=== PATIENT | female | born 1975 | race Hispanic/Latino ===

== ENCOUNTER 2024-06-14 09:39 | Emergency (ER) | payer OTHER, SELFPAY ==
[2024-06-14 09:45] VITALS: BP 109/77; PULSE 79; RESP 14; TEMP 36.6; O2SAT 97; BMI 45.5
[2024-06-14 10:07] LABS: Bacteria Urine Many (>30); Culture Indicated Urine Specimen Cultured; Ictotest Urine Negative (Negative); RBC Urine 1-5/HPF (0-5/HPF); Squamous Epithelial Cell Urine 5-10 /HPF (0-5/HPF); Urine Volume 10mL (spun); WBC Urine 30-100/HPF (0-5/HPF)
--- NOTE | 2024-06-14 10:27 | ED_ITS ---
HPI - Back Pain/Injury <Randolph Adam MD - Last Filed: 06/17/24 07:42> General Chief Complaint: Back Pain/Injury Stated Complaint: back pain kidney pain ear pain Time Seen by Provider: 06/14/24 10:20 Source: patient History of Present Illness HPI Narrative: Patient here visiting from [place]. Patient here since February 2024. She will return December 2024. Patient complains 4 months of right ear drainage without hearing loss. No prior history of ear surgery. 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 Patient complains 1 week of bilateral flank pain without dysuria or frequency. History of UTI last year but does not feel the same. No fever chills no cough cold or congestion. No known back injury. Patient in no distress. Patient does have history of diabetes. No prior history of kidney stones. Patient resting comfortably. Can hear rubbing fingers and whispering in the right ear. There is slight greenish discharge in the canal. Related Data Previous Rx's Medication Instructions Recorded cefdinir 300 mg capsule 300 mg PO BID #10 caps 06/14/24 ciprofloxacin HCl 0.2 % ear drops 5 drp EAR-RIGHT BID 7 days #14 ea 06/14/24 in a dropperette Allergies Allergy/AdvReac Type Severity Reaction Status Date / Time codeine Allergy Verified 06/14/24 09:45 iodine Allergy Verified 06/14/24 09:45 Review of Systems <Randolph Adam MD - Last Filed: 06/17/24 07:42> Review of Systems Narrative: GENERAL: Negative chills, fatigue, malaise, fever, sweats. HEENT: Negative sinus pain, ear pain, sore throat, positive right ear discharge RESPIRATORY: Negative dyspnea, cough CARDIOVASCULAR: Negative chest pain, palpitations GASTROINTESTINAL: Negative nausea, vomiting, abdominal pain, positive flank pain : Negative dysuria, frequency, hematuria MUSCULOSKELETAL: Negative muscle or bony pain SKIN: Negative rash, skin lesions NEUROLOGIC: Negative weakness, numbness ROS Unobtainable: All systems reviewed & are unremarkable except as noted in HPI and below Patient History <Randolph Adam MD - Last Filed: 06/17/24 07:42> Social History Smoking Status: Unknown if ever smoked Smoking Status: Unknown if ever smoked Exam <Randolph Adam MD - Last Filed: 06/17/24 07:42> Narrative Exam Narrative: GENERAL: in no distress, not toxic not dyspneic HEAD: Normocephalic. EYES: Pupils equal round ENT: Mucous membranes moist. Examination of the right ear. There is mild erythema of the canal with old green discharge. Tympanic membrane intact. No effusion or bulging or erythema. No vesicles or lesions. Tragus is mildly tender. NECK: Trachea midline. CARDIOVASCULAR: Regular rate and rhythm RESPIRATORY: Clear to auscultation. Breath sounds equal bilaterally. No wheezes, rales, or rhonchi. GASTROINTESTINAL: Abdomen soft, non-tender, abdomen is soft nontender no peritoneal signs no pain out of portion exam no guarding no rebound. Bowel sounds are present. EXTREMITIES: No gross deformities. BACK: No flank tenderness. No CVA tenderness NEURO: AOx4. Clear speech SKIN: Warm and dry PSYCH: Not anxious, is cooperative Initial Vital Signs Initial Vital Signs: Vital Signs Temperature 97.9 F 06/14/24 09:45 Pulse Rate 79 06/14/24 09:45 Respiratory Rate 14 06/14/24 09:45 Blood Pressure 109/77 06/14/24 09:45 Pulse Oximetry 97 06/14/24 09:45 Oxygen Delivery Method Room Air 06/14/24 09:45 <Amber Betts DO - Last Filed: 06/16/24 11:24> Initial Vital Signs Initial Vital Signs: Vital Signs Temperature 97.9 F 06/14/24 09:45 Pulse Rate 79 06/14/24 09:45 Respiratory Rate 14 06/14/24 09:45 Blood Pressure 109/77 06/14/24 09:45 Pulse Oximetry 97 06/14/24 09:45 Oxygen Delivery Method Room Air 06/14/24 09:45 Course <Randolph Adam MD - Last Filed: 06/17/24 07:42> Orders Ordered: Discontinued Medications Cefdinir (Cefdinir 300 Mg Capsule) 300 mg PO NOW ONE Stop: 06/14/24 12:01 Last Admin: 06/14/24 12:10 Dose: 300 mg Documented By: RB Ondansetron HCl (Ondansetron 4 Mg/2 Ml Inj) 4 mg IV NOW PRN PRN Reason: Nausea And Vomiting Ondansetron HCl (Ondansetron 4 Mg Odt) 4 mg SL NOW PRN PRN Reason: Nausea And Vomiting Vital Signs Vital signs: Vital Signs - 8 hr 06/14/24 09:45 Temperature 97.9 F Pulse Rate 79 Respiratory Rate 14 Blood Pressure 109/77 Pulse Oximetry 97 Oxygen Delivery Method Room Air <Amber Betts DO - Last Filed: 06/16/24 11:24> Orders Ordered: Discontinued Medications Cefdinir (Cefdinir 300 Mg Capsule) 300 mg PO NOW ONE Stop: 06/14/24 12:01 Last Admin: 06/14/24 12:10 Dose: 300 mg Documented By: RB Ondansetron HCl (Ondansetron 4 Mg/2 Ml Inj) 4 mg IV NOW PRN PRN Reason: Nausea And Vomiting Ondansetron HCl (Ondansetron 4 Mg Odt) 4 mg SL NOW PRN PRN Reason: Nausea And Vomiting Vital Signs Vital signs: Vital Signs - 8 hr 06/14/24 09:45 Temperature 97.9 F Pulse Rate 79 Respiratory Rate 14 Blood Pressure 109/77 Pulse Oximetry 97 Oxygen Delivery Method Room Air MDM - Back Pain/Injury <Randolph Adam MD - Last Filed: 06/17/24 07:42> Lab Data 06/14/24 10:30 06/14/24 10:30 Labs: Lab Results 06/14/24 06/14/24 Range/Units 09:47 10:30 WBC 5.5 (4.5-11.0) X10^3/uL RBC 4.46 (4.0-5.2) X10^6/uL Hgb 13.8 (12.0-16.0) g/dL Hct 42.0 (36-46) % MCV 94.2 (80-100) fL MCH 30.9 (26-34) PG MCHC 32.8 (30-36) % RDW 13.9 (11.6-14.8) % Plt Count 293 (150-400) X10^3/uL Neut % (Auto) 44.4 L (50-75) % Lymph % (Auto) 41.7 H (25-40) % [place] % (Auto) 8.6 (3-14) % Eos % (Auto) 4.5 H (2-4) % Baso % (Auto) 0.8 (0-2) % Neut # (Auto) 2400 (2496-0990) /uL Lymph # (Auto) 2300 (2034-0965) /uL [place] # (Auto) 500 (0-900) /uL Eos # (Auto) 200 (0-450) /uL Baso # (Auto) 0 (0-100) /uL Sodium 137 (137-145) mmol/L Potassium 4.1 (3.4-5.1) mmol/L Chloride 106 (98-107) mmol/L Carbon Dioxide 22 (22-32) mmol/L BUN 14 (7-17) mg/dL Creatinine 1.17 H (0.52-1.04) mg/dL Estimated GFR 57 L (>60) mL/min BUN/Creatinine Ratio 12.0 (6-22) Glucose 94 (70-100) mg/dL Calcium 8.9 (8.4-10.2) mg/dL Total Bilirubin 0.4 (0.2-1.3) mg/dL AST 27 (14-36) IU/L ALT 20 (<35) IU/L Alkaline Phosphatase 79 (38-126) U/L Total Protein 6.9 (6.3-8.2) g/dL Albumin 3.9 (3.5-5.0) g/dL Globulin 3.0 (1.7-4.1) g/dL Albumin/Globulin Ratio 1.3 (1.0-2.8) Ur Bilirubin Confirm Negative (Negative) Urine RBC 1-5/hpf (0-5/HPF) Urine WBC 30-100/hpf H (0-5/HPF) Ur Squamous Epith Cells 5-10 /hpf H (0-5/HPF) Urine Bacteria Many (>30) H (None) Ur Culture Indicated? Specimen cultured Vol Urine Centrifuged 10ml (spun) Point of Care Testing Test Results Negative Urine Dip Bedside Urine Glucose Negative Bedside Urine Bilirubin + 1 Bedside Urine Ketone - Negative Urine Specific [place] 1.015 Bedside Urine Occult Blood +/- Bedside Urine pH 6.0 Bedside Urine Protein +/- 15 Bedside Urine Urobilinogen - Negative Bedside Urine Nitrite - Negative Bedside Urine Leukocytes +++ [address] scan - abdomen/pelvis: Radiologist's Impression: [address] [address] [address] Scan Report Signed Patient: Sherita Shaw MR#: [id number] : 1975 Acct:[id number] Age/Sex: 48 / F Date of Service: 06/14/24 Loc: ED Accession Number: [id number] Procedure: CT kidney ureter bladder (KUB) Ordering Provider: Randolph Adam MD PROCEDURE: CT KIDNEY URETER BLADDER (KUB) INDICATIONS: Flank pain TECHNIQUE: Axial sections were acquired from the lung bases to the pubic symphysis. Coronal and sagittal reformats were performed. For radiation dose reduction, the following was used: automated exposure control, adjustment of mA and/or kV according to patient size. COMPARISON: None. FINDINGS: Image quality: Diagnostic. Lower Chest: No significant findings. URINARY: Right Kidney: There are 2 punctate nonobstructing calcifications. Right Ureter: No hydroureter. Left Kidney: 4-5 punctate nonobstructing calcifications. Left Ureter: No hydroureter. Bladder: Normal wall thickness. No stones. ABDOMEN: Liver: No contour-deforming solid mass. Gallbladder: Removed. Biliary ducts: No biliary dilation. Pancreas: No ductal dilation. Spleen: Size is within normal limits. Adrenal Glands: No adrenal nodules. Stomach and Bowel: Normal colonic caliber, without significant wall thickening. Minimal diverticula without inflammatory change. Peritoneum: No abnormal intraperitoneal fluid. No free air. Ventral Wall: No hernia. Abdominal Nodes: No enlarged retroperitoneal or mesenteric lymph nodes. Vessels: Aorta and inferior vena cava are normal in size. PELVIS: Pelvic Organs: Unremarkable. Pelvic Nodes: Unremarkable. Miscellaneous: No inguinal hernias are seen. Spinal stimulators present with leads extending to T8-9. Bones: Unremarkable. IMPRESSION: No obstructing stones or hydronephrosis. Diverticulosis. Dictated by: Karyna Hampton M.D. on 06/14/2024 at 11:14 Approved by: Karyna Hampton M.D. on 06/14/2024 at 11:18 MDM Narrative Medical decision making narrative: Patient here visiting from [place]. Patient here since February 2024. She will return December 2024. Patient complains 4 months of right ear drainage without hearing loss. No prior history of ear surgery. 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 Patient complains 1 week of bilateral flank pain without dysuria or frequency. History of UTI last year but does not feel the same. No fever chills no cough cold or congestion. No known back injury. Patient in no distress. Patient does have history of diabetes. No prior history of kidney stones. Patient resting comfortably. Can hear rubbing fingers and whispering in the right ear. There is slight greenish discharge in the canal. After history and exam, CBC CMP urinalysis CT abdomen pelvis [facility] Medical records reviewed: No recent visit for this complaint Differential considered: Includes but not limited to otitis externa pyelonephritis UTI kidney stone Lab Test results independently reviewed as above. Pertinent findings: Urinalysis WBC 100. Positive bacteria. WBC 5.5 hemoglobin 13.8 sodium 137 potassium 4.1 BUN 14 creatinine 1.17 GFR 57 Imaging studies independently reviewed: CT abdomen pelvis no acute finding Treatments: Omnicef Re-evaluations: 12:07 p.m.. Updated patient results. Patient in no distress. Agrees for treatment for swimmer's ear and UTI. Medications have been started. Prescriptions provided. Referrals provided for ENT as well as primary care. She desires discharge home. Discussion: Appropriate for discharge home exam is reassuring as well as laboratory studies and imaging studies. Return precautions reviewed with patient. Antibiotics have been started. She desires discharge home. Diagnosis: Otitis externa, UTI <Amber Betts, DO - Last Filed: 06/16/24 11:24> Lab Data Labs: Lab Results 06/14/24 06/14/24 Range/Units 09:47 10:30 WBC 5.5 (4.5-11.0) X10^3/uL RBC 4.46 (4.0-5.2) X10^6/uL Hgb 13.8 (12.0-16.0) g/dL Hct 42.0 (36-46) % MCV 94.2 (80-100) fL MCH 30.9 (26-34) PG MCHC 32.8 (30-36) % RDW 13.9 (11.6-14.8) % Plt Count 293 (150-400) X10^3/uL Neut % (Auto) 44.4 L (50-75) % Lymph % (Auto) 41.7 H (25-40) % [facility] % (Auto) 8.6 (3-14) % Eos % (Auto) 4.5 H (2-4) % Baso % (Auto) 0.8 (0-2) % Neut # (Auto) 2400 (7863-8301) /uL Lymph # (Auto) 2300 (5817-6874) /uL [facility] # (Auto) 500 (0-900) /uL Eos # (Auto) 200 (0-450) /uL Baso # (Auto) 0 (0-100) /uL Sodium 137 (137-145) mmol/L Potassium 4.1 (3.4-5.1) mmol/L Chloride 106 (98-107) mmol/L Carbon Dioxide 22 (22-32) mmol/L BUN 14 (7-17) mg/dL Creatinine 1.17 H (0.52-1.04) mg/dL Estimated GFR 57 L (>60) mL/min BUN/Creatinine Ratio 12.0 (6-22) Glucose 94 (70-100) mg/dL Calcium 8.9 (8.4-10.2) mg/dL Total Bilirubin 0.4 (0.2-1.3) mg/dL AST 27 (14-36) IU/L ALT 20 (<35) IU/L Alkaline Phosphatase 79 (38-126) U/L Total Protein 6.9 (6.3-8.2) g/dL Albumin 3.9 (3.5-5.0) g/dL Globulin 3.0 (1.7-4.1) g/dL Albumin/Globulin Ratio 1.3 (1.0-2.8) Ur Bilirubin Confirm Negative (Negative) Urine RBC 1-5/hpf (0-5/HPF) Urine WBC 30-100/hpf H (0-5/HPF) Ur Squamous Epith Cells 5-10 /hpf H (0-5/HPF) Urine Bacteria Many (>30) H (None) Ur Culture Indicated? Specimen cultured Vol Urine Centrifuged 10ml (spun) Point of Care Testing Test Results Negative Urine Dip Bedside Urine Glucose Negative Bedside Urine Bilirubin + 1 Bedside Urine Ketone - Negative Urine Specific [place] 1.015 Bedside Urine Occult Blood +/- Bedside Urine pH 6.0 Bedside Urine Protein +/- 15 Bedside Urine Urobilinogen - Negative Bedside Urine Nitrite - Negative Bedside Urine Leukocytes +++ 500 Esterase MDM Narrative Medical decision making narrative: Patient here visiting from [place]. Patient here since February 2024. She will return December 2024. Patient complains 4 months of right ear drainage without hearing loss. No prior history of ear surgery. 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 Patient complains 1 week of bilateral flank pain without dysuria or frequency. History of UTI last year but does not feel the same. No fever chills no cough cold or congestion. No known back injury. Patient in no distress. Patient does have history of diabetes. No prior history of kidney stones. Patient resting comfortably. Can hear rubbing fingers and whispering in the right ear. There is slight greenish discharge in the canal. After history and exam, CBC CMP urinalysis CT abdomen pelvis [facility] Medical records reviewed: No recent visit for this complaint Differential considered: Includes but not limited to otitis externa pyelonephritis UTI kidney stone Lab Test results independently reviewed as above. Pertinent findings: Urinalysis WBC 100. Positive bacteria. WBC 5.5 hemoglobin 13.8 sodium 137 potassium 4.1 BUN 14 creatinine 1.17 GFR 57 Imaging studies independently reviewed: CT abdomen pelvis no acute finding Treatments: Omnicef Re-evaluations: 12:07 p.m.. Updated patient results. Patient in no distress. Agrees for treatment for swimmer's ear and UTI. Medications have been started. Prescriptions provided. Referrals provided for ENT as well as primary care. She desires discharge home. Discussion: Appropriate for discharge home exam is reassuring as well as laboratory studies and imaging studies. Return precautions reviewed with patient. Antibiotics have been started. She desires discharge home. Diagnosis: Otitis externa, UTI Dr. Betts, patient's urine culture shows E coli greater than 100,000 pansensitive patient discharged home on cefdinir no additional changes at this time.06/16/24 Discharge Plan Departure Patient Disposition: Home Clinical Impression: Acute UTI Otitis externa Qualifiers: Otitis externa type: unspecified type Chronicity: chronic Laterality: right Q ualified Code(s): H60.61 - Unspecified chronic otitis externa, right ear Instructions: DI for Urinary Tract Infection (UTI), DI for Otitis Externa Activity Restrictions/Additional Instructions: You are being treated for urinary tract infection. Antibiotics have been started sent to your pharmacy to continue. Prescription for ear drops also provided for you to treat infection. Please avoid getting water or fluid into your right ear. Please call [facility] today for follow up within a week. Also see family doctor or call provided clinic for follow up regarding urinary tract infection improvement. Please call provided primary care provider phone number to obtain family doctor, . Return if worse if any questions or concerns Prescriptions: New cefdinir 300 mg capsule 300 mg PO BID Qty: 10 0RF ciprofloxacin HCl 0.2 % dropperette 5 drp EAR-RIGHT BID 7 Days Qty: 14 0RF Stand Alone Forms: Patient Portal/API/Survey
--- NOTE | 2024-06-14 10:31 | DI.CT.S_ITS ---
PROCEDURE: CT KIDNEY URETER BLADDER (KUB) INDICATIONS: Flank pain TECHNIQUE: Axial sections were acquired from the lung bases to the pubic symphysis. Coronal and sagittal reformats were performed. For radiation dose reduction, the following was used: automated exposure control, adjustment of mA and/or kV according to patient size. COMPARISON: None. FINDINGS: Image quality: Diagnostic. Lower Chest: No significant findings. URINARY: Right Kidney: There are 2 punctate nonobstructing calcifications. Right Ureter: No hydroureter. Left Kidney: 4-5 punctate nonobstructing calcifications. Left Ureter: No hydroureter. Bladder: Normal wall thickness. No stones. ABDOMEN: Liver: No contour-deforming solid mass. Gallbladder: Removed. Biliary ducts: No biliary dilation. Pancreas: No ductal dilation. Spleen: Size is within normal limits. Adrenal Glands: No adrenal nodules. Stomach and Bowel: Normal colonic caliber, without significant wall thickening. Minimal diverticula without inflammatory change. Peritoneum: No abnormal intraperitoneal fluid. No free air. Ventral Wall: No hernia. Abdominal Nodes: No enlarged retroperitoneal or mesenteric lymph nodes. Vessels: Aorta and inferior vena cava are normal in size. PELVIS: Pelvic Organs: Unremarkable. Pelvic Nodes: Unremarkable. Miscellaneous: No inguinal hernias are seen. Spinal stimulators present with leads extending to T8-9. Bones: Unremarkable. IMPRESSION: No obstructing stones or hydronephrosis. Diverticulosis. Dictated by: Karyna Hampton M.D. on 06/14/2024 at 11:14 Approved by: Karyna Hampton M.D. on 06/14/2024 at 11:18
[2024-06-14 10:40] LABS: Add Manual Diff / Slide Review NO; Basophils Absolute Auto 0 /uL (0-100); Basophils Percent Auto 0.8 % (0-2); Eosinophils Absolute Auto 200 /uL (0-450); Eosinophils Percent Auto 4.5 % (2-4); Hemoglobin 13.8 g/dL (12.0-16.0); Lymphocytes Absolute Auto 2300 /uL (1100-4500); Lymphocytes Percent Auto 41.7 % (25-40); Mean Corpuscular HGB Conc 32.8 % (30-36); Mean Corpuscular Hemoglobin 30.9 PG (26-34); Mean Corpuscular Volume 94.2 fL (80-100); Monocytes Absolute Auto 500 /uL (0-900); Monocytes Percent Auto 8.6 % (3-14); Neutrophils Absolute Auto 2400 /uL (1500-7000); Neutrophils Percent Auto 44.4 % (50-75); Platelet Count 293 X10^3/uL (150-400); Red Blood Cell Count 4.46 X10^6/uL (4.0-5.2); Red Cell Distribution Width 13.9 % (11.6-14.8); White Blood Cell Count 5.5 X10^3/uL (4.5-11.0)
[2024-06-14 10:52] LABS: Albumin 3.9 g/dL (3.5-5.0); Albumin Globulin Ratio 1.3 (1.0-2.8); Blood Urea Nitrogen 14 mg/dL (7-17); Carbon Dioxide 22 mmol/L (22-32); Estimated Glomerular Filt Rate 57 mL/min (>60); HEMOLYSIS < 15 (0-50); Sodium 137 mmol/L (137-145); Total Protein 6.9 g/dL (6.3-8.2)
[2024-06-14 10:54] LABS: Alanine Aminotransferase 20 IU/L (<35); Alkaline Phosphatase 79 U/L (38-126); Aspartate Aminotransferase 27 IU/L (14-36); Bilirubin Total 0.4 mg/dL (0.2-1.3); Calcium 8.9 mg/dL (8.4-10.2); Chloride 106 mmol/L (98-107); Glucose 94 mg/dL (70-100); Potassium 4.1 mmol/L (3.4-5.1)
[2024-06-14 12:00] VITALS: PULSE 74; RESP 14; TEMP 36.5; O2SAT 97
[2024-06-14] MEDS: CEFDINIR 300 MG CAPSULE PO (12:10)
[2024-06-14 12:16] VITALS: BP 91/62
== END 2024-06-14 12:15 | disposition home or self-care (01) ==
PROVIDERS: Emergency Provider Emergency Medicine
DX: H60.61 Unspecified chronic otitis externa, right ear (principal); N39.0 Urinary tract infection, site not specified; R10.9 Unspecified abdominal pain
CPT/HCPCS: 36415; 74176; 80053; 81003; 81015; 81025; 85025; 87077; 87086; 87186; 99284

== ENCOUNTER 2024-07-20 19:28 | Emergency (ER) | payer OTHER, SELFPAY ==
[2024-07-20 19:42] VITALS: BP 121/82; PULSE 71; RESP 18; O2SAT 97; BMI 45.7
[2024-07-20 20:01] LABS: Appearance Urine UA CLEAR; Bilirubin Urine UA NEGATIVE (NEGATIVE); Color Urine UA YELLOW; Glucose Urine UA NEGATIVE (Negative); Ketones Urine UA NEGATIVE (NEGATIVE); Leukocyte Esterase Urine UA NEGATIVE (NEGATIVE); Nitrite Urine UA POSITIVE (Negative); Occult Blood Urine UA NEGATIVE (Negative); Protein Urine UA NEGATIVE (Negative); Specific Gravity Urine UA >=1.030 (1.000-1.035); Urobilinogen Urine UA 0.2 E.U./dL (0.2)
[2024-07-20 20:03] LABS: pH Urine UA 5.5 (4.5-8.0)
[2024-07-20 20:09] LABS: Bacteria Urine Many (>30); Culture Indicated Urine Specimen Cultured; RBC Urine None Seen (0-5/HPF); Squamous Epithelial Cell Urine 1-5 /HPF (0-5/HPF); Urine Volume 10mL (spun); WBC Urine 5-10/HPF (0-5/HPF)
[2024-07-20 21:58] VITALS: PULSE 72; O2SAT 99
[2024-07-20 21:59] VITALS: BP 110/73; PULSE 72; O2SAT 98
[2024-07-20 22:00] VITALS: BP 110/69; PULSE 71; RESP 16; O2SAT 98
[2024-07-20 22:30] VITALS: BP 111/66; PULSE 67; O2SAT 96
[2024-07-20 23:00] VITALS: BP 99/59; PULSE 69; O2SAT 97
--- NOTE | 2024-07-20 23:07 | ED.BACK ---
HPI - Back Pain/Injury General Chief Complaint: Back Pain/Injury Stated Complaint: pain back RT side T-7 Time Seen by Provider: 07/20/24 22:41 Source: patient Mode of arrival: Ambulatory Limitations: no limitations History of Present Illness HPI Narrative: 48-year-old female with history of back pain and neurostimulator, GERD, anxiety depression a Moderna with complaint of right flank pain increased with movement for 7 days. Patient states no fevers or chills. No chest pain or shortness of breath. No nausea or vomiting. No GI or urinary symptoms. Patient has had UTIs in the past sometimes with symptoms sometimes not. Patient states no pain radiating down her legs. No numbness tingling or weakness. She described as it was right flank pain. Does not come around to the front. Patient does have chronic back issues but states this feels different. She does take [place] at home, pregabalin, more roshan, omeprazole and anxiety medication. She was had private cholecystectomy, spinal stimulator, breast biopsy x2 in the left, prior surgery for her right tennis elbow and left tarsal tunnel release. Patient has allergies to codeine and iodine. No regular tobacco, no regular alcohol or recreational drugs. Related Data Previous Rx's Medication Instructions Recorded cefdinir 300 mg capsule 300 mg PO BID #10 caps 06/14/24 levofloxacin 750 mg tablet 750 mg PO DAILY 10 days #10 tabs 07/20/24 Allergies Allergy/AdvReac Type Severity Reaction Status Date / Time codeine Allergy Verified 06/14/24 09:45 iodine Allergy Verified 06/14/24 09:45 Review of Systems Review of Systems ROS Unobtainable: All systems reviewed & are unremarkable except as noted in HPI and below Exam Narrative Exam Narrative: GENERAL: Alert and oriented x three, female in mild distress HEENT: Head normocephalic, atraumatic, EOMI, pupils reactive, face symmetric, moist mucous membranes NECK: Supple, full range of motion CARDIOVASCULAR: Regular rate and rhythm without murmurs, rubs or gallops. RESPIRATORY: Breath sounds equal bilaterally, no wheezes rales or rhonchi. ABDOMEN: Soft, nontender. Normoactive bowel sounds all 4 quadrants. No guarding or rebound, rigidity, no mass : Positive for right CVA tenderness, no left CVA tenderness. No rash or skin changes. BACK: No cervical, thoracic or lumbar vertebral point tenderness. Patient has normal range of motion. Patient's gait is normal. Muscle strength is 5/5 in lower extremities, Dorsalis pedis and tibialis pulses are 2+ and lower extremities. Sensation is intact in the lower extremities. EXTREMITIES: Normal range of motion, no clubbing or edema. Neurovascularly intact NEUROLOGICAL: Cranial nerves II through XII grossly intact. Moving all extremities SKIN: Warm, dry, no petechiae, no rashes or lesions. Initial Vital Signs Initial Vital Signs: Vital Signs Pulse Rate 71 07/20/24 19:42 Respiratory Rate 18 07/20/24 19:42 Blood Pressure 121/82 07/20/24 19:42 Pulse Oximetry 97 07/20/24 19:42 Oxygen Delivery Method Room Air 07/20/24 19:42 Course Orders Ordered: Discontinued Medications Ketorolac Tromethamine (Ketorolac 30 Mg/Ml Vial) 15 mg IV NOW ONE Stop: 07/20/24 23:51 Last Admin: 07/21/24 00:16 Dose: 15 mg Documented By: Levofloxacin (Levofloxacin 250 Mg Tablet) 750 mg PO NOW ONE Stop: 07/20/24 23:51 Last Admin: 07/21/24 00:16 Dose: 750 mg Documented By: Ondansetron HCl (Ondansetron 4 Mg/2 Ml Inj) 4 mg IV NOW PRN PRN Reason: Nausea And Vomiting Last Admin: 07/20/24 23:09 Dose: 4 mg Documented By: Ondansetron HCl (Ondansetron 4 Mg Odt) 4 mg SL NOW PRN PRN Reason: Nausea And Vomiting Vital Signs Vital signs: Vital Signs - 8 hr 07/20/24 23:00 07/20/24 23:00 Pulse Rate 69 Blood Pressure 99/59 L Pulse Oximetry 97 Oxygen Delivery Method Room Air MDM - Back Pain/Injury Lab Data Labs: Lab Results 07/20/24 Range/Units 19:53 Urine Color Yellow Urine Appearance Clear Urine pH 5.5 (4.5-8.0) Ur Specific [place] >=1.030 H (1.000-1.035) Urine Protein Negative (Negative) Urine Glucose (UA) Negative (Negative) g/dL Urine Ketones Negative (NEGATIVE) Urine Occult Blood Negative (Negative) Urine Nitrate Positive H (Negative) Urine Bilirubin Negative (NEGATIVE) Urine Urobilinogen 0.2 (0.2) E.U./dL Ur Leukocyte Esterase Negative (NEGATIVE) Urine RBC None seen (0-5/HPF) Urine WBC 5-10/hpf H (0-5/HPF) Ur Squamous Epith Cells 1-5 /hpf (0-5/HPF) Urine Bacteria Many (>30) H (None) Ur Culture Indicated? Specimen cultured Vol Urine Centrifuged 10ml (spun) MDM Narrative Medical decision making narrative: UA shows positive nitrates negative for leuks, no RBCs 5-10 white cells 1-5 squamous many bacteria was sent for culture. Prior urine culture from June 16, 2024 shows greater than 100,000 E coli which was pansensitive. 48-year-old female with right flank pain for about 7 days afebrile otherwise well-appearing has a history of back pain but states this feels different is tender at her flank on exam with urine that is positive for nitrates leuks and appears to have infection. We will go ahead and treat for potential pyelonephritis the patient was nontoxic well-appearing do not feel she needs additional workup at this time. She was no red flag symptoms in terms of her chronic back pain. Patient notes she has had UTIs infections in the past sometimes has symptoms with them but not always. We will cover for with oral antibiotic. Discharge Plan Departure Patient Disposition: Home Clinical Impression: Pyelonephritis Instructions: DI for Kidney Infection Activity Restrictions/Additional Instructions: Your urine today shows signs consistent with infection suspect your developing a kidney infection causing your flank pain on the right side. You can take ibuprofen up to 600 mg every 6 hours and/or acetaminophen up to a 1000 mg every 6 hours needed for pain. Take oral antibiotics until completed. Prescription sent to [facility] in [place] Please return for fevers, rapidly worsening pain, persistent vomiting, black or bloody stools, lightheadedness or passing out or other new or concerning changes. Prescriptions: New levofloxacin 750 mg tablet 750 mg PO DAILY 10 Days Qty: 10 0RF No Action cefdinir 300 mg capsule 300 mg PO BID Qty: 10 0RF Stand Alone Forms: Patient Portal/API/Survey
[2024-07-20] MEDS: ONDANSETRON 4 MG/2 ML INJ IV (23:09)
[2024-07-21] MEDS: KETOROLAC 30 MG/ML VIAL 15 MG IV (00:16)
[2024-07-21] MEDS: levoFLOXacin 250 MG TABLET 750 MG PO (00:16)
== END 2024-07-21 00:18 | disposition home or self-care (01) ==
PROVIDERS: Emergency Provider Emergency Medicine
DX: N12 Tubulo-interstitial nephritis, not specified as acute or chronic (principal)
CPT/HCPCS: 36415; 81001; 87077; 87086; 87186; 96374; 96375; 99284; J1885; J2405

== ENCOUNTER 2024-07-31 11:06 | Emergency (ER) | payer OTHER, SELFPAY ==
[2024-07-31 11:10] VITALS: BP 120/80; PULSE 77; RESP 14; TEMP 36.4; O2SAT 98; BMI 45.7
--- NOTE | 2024-07-31 11:17 | ED.BACK ---
HPI - Back Pain/Injury General Chief Complaint: Back Pain/Injury Stated Complaint: Right side back pain Time Seen by Provider: 07/31/24 11:17 Source: patient History of Present Illness HPI Narrative: 48-year-old female history of back pain with neurostimulator, GERD, anxiety, depression comes into the ED from home for evaluation of right-sided flank pain. She states that she was diagnosed a week ago with a urine/kidney infection, states that her symptoms never went away, therefore decided come into the ED for further evaluation treatment. She also states that she has been having right-sided shoulder pain started this morning, she states that she thinks she might have ?slept on it wrong. When she denies any numbness weakness tingling to the right upper extremity denies any neck pain. She denies any other symptoms such as headache visual disturbances chest pain shortness breath fever chills nausea vomiting or any other GI/ symptoms at this time. She states that she did finish the antibiotics. Related Data Previous Rx's Medication Instructions Recorded cefdinir 300 mg capsule 300 mg PO BID #10 caps 06/14/24 diazepam 5 mg tablet (Valium) 5 mg PO BEDTIME PRN muscle spasm 5 07/31/24 days #5 tabs lidocaine 5 % patch and menthol 6 See Rx Instructions topical 07/31/24 % gel topical kit .COMPLEX 1 week #1 ea Allergies Allergy/AdvReac Type Severity Reaction Status Date / Time codeine Allergy Verified 06/14/24 09:45 iodine Allergy Verified 06/14/24 09:45 Review of Systems Review of Systems Narrative: General: Denies fever, chills, weight loss HEENT: Denies headache, eye drainage, eye irritation, head trauma, sore throat, voice change Cardiovascular: Denies any chest pain, palpitations, tachycardia Respiratory: Denies any shortness of breath, cough, wheeze, stridor GI/: Positive right-sided flank pain, Denies any abdominal pain, nausea, vomiting, diarrhea, bright red blood per rectum, melanotic stools, urinary frequency, urinary retention, dysuria, hematuria MSK: Positive right shoulder pain Skin: Denies any rashes, lesions, discoloration Neuro: Denies any headache, lightheadedness, dizziness, fainting, weakness Psych: Denies SI/HI Patient History Social History Smoking Status: Never smoker Smoking Status: Never smoker Exam Narrative Exam Narrative: General: Cooperative, well-developed, not in acute distress HEENT: Normocephalic, atraumatic, PERRLA, normal sclera, eyelids normal Neck: Active full range of motion, atraumatic Chest: Normal to inspection, negative crepitus, no overlying erythema ecchymosis Respiratory: Normal respiratory effort, not in acute respiratory distress, clear to auscultation bilaterally negative cough, wheeze, tachypnea, rhonchi, rales Cardiology: Regular rate rhythm negative gallop, murmur, rubs GI/: Positive right CVA tenderness, No tenderness to palpation, soft, non rigid, normal to inspection, exam deferred MSK: Full active range of motion in all 4 extremities, atraumatic, no tenderness to palpation of any bony prominences Skin: No rashes or lesions noted Neuro: Alert awake oriented x3, moves all 4 extremities spontaneously, cranial nerves intact, able to answer all questions appropriately follows commands appropriately Psych: Cooperative, negative suicidal or homicidal ideations Initial Vital Signs Initial Vital Signs: Vital Signs Temperature 97.6 F 07/31/24 11:10 Pulse Rate 77 07/31/24 11:10 Respiratory Rate 14 07/31/24 11:10 Blood Pressure 120/80 07/31/24 11:10 Pulse Oximetry 98 07/31/24 11:10 Oxygen Delivery Method Room Air 07/31/24 11:10 Course Orders Ordered: ED Orders 07/31/24 11:15 Urine Microscopic Stat 07/31/24 11:27 CT abdomen pelvis wo con Stat XR shoulder RT 2+ views Stat 07/31/24 11:30 Complete Blood Count AUTO DIFF Stat Comprehensive Metabolic Panel Stat Lipase Stat MAG [Magnesium] Stat Ondansetron HCl (Ondansetron 4 Mg Odt) 4 mg SL NOW PRN PRN Reason: Nausea And Vomiting Discontinued Medications Morphine Sulfate (Morphine 4 Mg/Ml Inj) 4 mg IV NOW ONE Stop: 07/31/24 11:28 Last Admin: 07/31/24 11:43 Dose: 4 mg Documented By: HOLLIE Vital Signs Vital signs: Vital Signs - 8 hr 07/31/24 11:10 Temperature 97.6 F Pulse Rate 77 Respiratory Rate 14 Blood Pressure 120/80 Pulse Oximetry 98 Oxygen Delivery Method Room Air MDM - Back Pain/Injury Differential Diagnosis Differential diagnosis: Likely other (Muscle strain, pyelonephritis, electrolyte abnormality) Lab Data 07/31/24 11:30 07/31/24 11:30 Labs: Lab Results 07/31/24 07/31/24 Range/Units 11:15 11:30 WBC 7.3 (4.5-11.0) X10^3/uL RBC 4.10 (4.0-5.2) X10^6/uL Hgb 13.1 (12.0-16.0) g/dL Hct 38.8 (36-46) % MCV 94.4 (80-100) fL MCH 32.0 (26-34) PG MCHC 33.9 (30-36) % RDW 14.2 (11.6-14.8) % Plt Count 302 (150-400) X10^3/uL Neut % (Auto) 53.2 (50-75) % Lymph % (Auto) 35.8 (25-40) % [place] % (Auto) 7.6 (3-14) % Eos % (Auto) 2.2 (2-4) % Baso % (Auto) 1.2 (0-2) % Neut # (Auto) 3900 (6156-4155) /uL Lymph # (Auto) 2600 (0999-6246) /uL [place] # (Auto) 600 (0-900) /uL Eos # (Auto) 200 (0-450) /uL Baso # (Auto) 100 (0-100) /uL Sodium 137 (137-145) mmol/L Potassium 4.2 (3.4-5.1) mmol/L Chloride 107 (98-107) mmol/L Carbon Dioxide 24 (22-32) mmol/L BUN 22 H (7-17) mg/dL Creatinine 1.10 H (0.52-1.04) mg/dL Estimated GFR > 60 (>60) mL/min BUN/Creatinine Ratio 20.0 (6-22) Glucose 85 (70-100) mg/dL Calcium 8.9 (8.4-10.2) mg/dL Magnesium 1.9 (1.6-2.3) mg/dL Total Bilirubin 0.4 (0.2-1.3) mg/dL AST 24 (14-36) IU/L ALT 17 (<35) IU/L Alkaline Phosphatase 79 (38-126) U/L Total Protein 6.7 (6.3-8.2) g/dL Albumin 3.8 (3.5-5.0) g/dL Globulin 2.9 (1.7-4.1) g/dL Albumin/Globulin Ratio 1.3 (1.0-2.8) Lipase 132 (23-300) U/L Urine RBC None seen (0-5/HPF) Urine WBC 1-5/hpf (0-5/HPF) Ur Squamous Epith Cells 5-10 /hpf H (0-5/HPF) Urine Bacteria Moderate (10-30) H (None) Ur Culture Indicated? Cult not indicated Vol Urine Centrifuged 10ml (spun) Point of Care Testing Test Results Negative Urine Dip Bedside Urine Glucose Negative Bedside Urine Bilirubin - Negative Bedside Urine Ketone - Negative Urine Specific Lily 1.025 Bedside Urine Occult Blood - Negative Bedside Urine pH 6 Bedside Urine Protein +/- 15 Bedside Urine Urobilinogen - Negative Bedside Urine Nitrite - Negative Bedside Urine Leukocytes - Negative Esterase Imaging Data CT scan - abdomen/pelvis: Radiologist's Impression: [address] [address] [address] Scan Report Signed Patient: Sherita Shaw MR#: [id number] : 1975 Acct:[id number] Age/Sex: 48 / F Date of Service: 07/31/24 Loc: ED Accession Number: [id number] Procedure: CT abdomen pelvis wo con Ordering Provider: Bull Dinero D.O. PROCEDURE: CT ABDOMEN PELVIS WO CON INDICATIONS: right sided flank pain TECHNIQUE: Axial sections were acquired from the lung bases to the pubic symphysis. Coronal and sagittal reformats were performed. For radiation dose reduction, the following was used: automated exposure control, adjustment of mA and/or kV according to patient size. COMPARISON: [facility], CT, CT KIDNEY URETER BLADDER (KUB), 06/14/2024, 10:40. FINDINGS: Image quality: Diagnostic. Lower Chest: No significant findings. URINARY: Right Kidney: 3 mm right superior as well as 2 mm right inferior calcification. No obstruction. Right Ureter: No hydroureter. Left Kidney: Linear 5 mm inferior pole as well as punctate superior pole calcification. The Left Ureter: No hydroureter. Bladder: Normal wall thickness. No stones. ABDOMEN: Liver: No contour-deforming solid mass. Liver measures 22.1 cm with steatosis. Gallbladder: Removed. Biliary ducts: No biliary dilation. Pancreas: No ductal dilation. Spleen: Size is within normal limits. Adrenal Glands: No adrenal nodules. Stomach and Bowel: Normal colonic caliber, without significant wall thickening. Diverticula are present without motion. Peritoneum: No abnormal intraperitoneal fluid. No free air. Ventral Wall: No hernia. Abdominal Nodes: No enlarged retroperitoneal or mesenteric lymph nodes. Vessels: Aorta and inferior vena cava are normal in size. PELVIS: Pelvic Organs: Unremarkable. Pelvic Nodes: Unremarkable. Miscellaneous: No inguinal hernias are seen. Bones: Spinal stimulator leads are unchanged. IMPRESSION: No obstructing stones or hydronephrosis. No visualized cause of right flank pain. Extremity x-ray #1: Radiologist's Impression: [address] [address] XRay Report Signed Patient: Sherita Shaw MR#: [id number] : 1975 Acct:[id number] Age/Sex: 48 / F Date of Service: 07/31/24 Loc: ED Accession Number: [id number] Procedure: XR shoulder RT 2+ views Ordering Provider: Bull Dinero D.O. PROCEDURE: XR SHOULDER RT MIN 2V INDICATIONS: pain, non traumatic TECHNIQUE: 4 views of the shoulder were acquired. COMPARISON: None. FINDINGS: Bones: No fractures or dislocations. No suspicious bony lesions. Visualized ribs appear intact. There is mild acromioclavicular narrowing. Soft tissues: No suspicious soft tissue calcifications. Small calcification near the humeral head possibly early calcific tendinitis. IMPRESSION: Suspicion for possible early calcific tendinitis. Mild acromioclavicular narrowing. [facility] Narrative Medical decision making narrative: 48-year-old female with a history of diabetes, hyperlipidemia, comes into the ED from home for evaluation of right-sided flank pain ongoing persistent for the past 2 weeks, was seen here previously diagnosed with pyelonephritis she states that she completed her medication, she states that she has not had any change to her pain. She states that it is dull and achy in nature, no radiation. She also complains of nontraumatic right shoulder pain, states that she woke up feeling the pain today, no numbness weakness tingling no focal deficits states that she feels like she ?slept on it wrong. Neurovascularly intact on exam. Patient also without any overlying erythema ecchymosis to the back, no midline tenderness to palpation of the thoracic lumbar spine but positive CVA tenderness. Patient had repeat lab work imaging urinalysis performed here in the emergency department. Urinalysis without any signs of acute urinary infection, lab work unremarkable, CT scan of the abdomen without any acute findings, shoulder x-ray just showing possible early calcific tendinitis, patient will be sent home with symptomatic relief for most likely musculoskeletal pain of the right flank, she was instructed to follow up with primary care in outpatient setting she verbalized understanding of this and agrees to being discharged home with outpatient follow up Review of records show that patient had urinalysis with culture performed on 07/20/2024 which showed bautista sensitivity patient was discharged home on cefdinir for pyelonephritis. Discharge Plan Departure Patient Disposition: Home Clinical Impression: Flank pain, Acute shoulder pain Instructions: DI for Back Spasm Activity Restrictions/Additional Instructions: Please follow up with your primary care doctor Please read the discharge instructions sheet carefully and bring all papers to all doctor follow-up visits, as it may contain information that your doctor may want to see. Disease processes change and evolve, if your symptoms worsen or if you develop any new symptoms that are concerning to you please return for evaluation. Your evaluation today does not show any evidence of any life-threatening/serious illnesses requiring admission to the hospital or surgery. Please follow-up with your doctor for re-evaluation in approximately 1 day. Seek immediate medical attention for any worrisome symptoms. *If you do not have a primary care provider please contact the [facility] Resource line at [phone]. They will ask some questions about your medical history and help get you set up with a doctor in the community. Prescriptions: New diazepam [Valium] 5 mg tablet 5 mg PO BEDTIME PRN (Reason: muscle spasm) 5 Days Qty: 5 0RF lidocaine-menthol 5-6 % kit See Rx Instructions .ROUTE .COMPLEX 7 Days Qty: 1 0RF Rx Instructions: apply LIDIOCAINE PATCH once a day/may leave on for up to 12 hrs; apply MENTHOL GEL 1 - 4 times/day as needed for pain. No Action cefdinir 300 mg capsule 300 mg PO BID Qty: 10 0RF Stand Alone Forms: Patient Portal/API/Survey
--- NOTE | 2024-07-31 11:27 | DI.CT.S_ITS ---
PROCEDURE: CT ABDOMEN PELVIS WO CON INDICATIONS: right sided flank pain TECHNIQUE: Axial sections were acquired from the lung bases to the pubic symphysis. Coronal and sagittal reformats were performed. For radiation dose reduction, the following was used: automated exposure control, adjustment of mA and/or kV according to patient size. COMPARISON: [facility], CT, CT KIDNEY URETER BLADDER (KUB), 06/14/2024, 10:40. FINDINGS: Image quality: Diagnostic. Lower Chest: No significant findings. URINARY: Right Kidney: 3 mm right superior as well as 2 mm right inferior calcification. No obstruction. Right Ureter: No hydroureter. Left Kidney: Linear 5 mm inferior pole as well as punctate superior pole calcification. The Left Ureter: No hydroureter. Bladder: Normal wall thickness. No stones. ABDOMEN: Liver: No contour-deforming solid mass. Liver measures 22.1 cm with steatosis. Gallbladder: Removed. Biliary ducts: No biliary dilation. Pancreas: No ductal dilation. Spleen: Size is within normal limits. Adrenal Glands: No adrenal nodules. Stomach and Bowel: Normal colonic caliber, without significant wall thickening. Diverticula are present without motion. Peritoneum: No abnormal intraperitoneal fluid. No free air. Ventral Wall: No hernia. Abdominal Nodes: No enlarged retroperitoneal or mesenteric lymph nodes. Vessels: Aorta and inferior vena cava are normal in size. PELVIS: Pelvic Organs: Unremarkable. Pelvic Nodes: Unremarkable. Miscellaneous: No inguinal hernias are seen. Bones: Spinal stimulator leads are unchanged. IMPRESSION: No obstructing stones or hydronephrosis. No visualized cause of right flank pain. Dictated by: Karyna Hampton M.D. on 07/31/2024 at 12:07 Approved by: Karyna Hampton M.D. on 07/31/2024 at 12:18
--- NOTE | 2024-07-31 11:27 | DI.RAD.S_ITS ---
PROCEDURE: XR SHOULDER RT MIN 2V INDICATIONS: pain, non traumatic TECHNIQUE: 4 views of the shoulder were acquired. COMPARISON: None. FINDINGS: Bones: No fractures or dislocations. No suspicious bony lesions. Visualized ribs appear intact. There is mild acromioclavicular narrowing. Soft tissues: No suspicious soft tissue calcifications. Small calcification near the humeral head possibly early calcific tendinitis. IMPRESSION: Suspicion for possible early calcific tendinitis. Mild acromioclavicular narrowing. Dictated by: Karyna Hampton M.D. on 07/31/2024 at 12:05 Approved by: Karyna Hampton M.D. on 07/31/2024 at 12:07
[2024-07-31 11:37] LABS: Add Manual Diff / Slide Review NO; Basophils Absolute Auto 100 /uL (0-100); Basophils Percent Auto 1.2 % (0-2); Eosinophils Absolute Auto 200 /uL (0-450); Eosinophils Percent Auto 2.2 % (2-4); Hematocrit 38.8 % (36-46); Hemoglobin 13.1 g/dL (12.0-16.0); Lymphocytes Absolute Auto 2600 /uL (1100-4500); Lymphocytes Percent Auto 35.8 % (25-40); Mean Corpuscular HGB Conc 33.9 % (30-36); Mean Corpuscular Volume 94.4 fL (80-100); Monocytes Absolute Auto 600 /uL (0-900); Monocytes Percent Auto 7.6 % (3-14); Neutrophils Absolute Auto 3900 /uL (1500-7000); Neutrophils Percent Auto 53.2 % (50-75); Platelet Count 302 X10^3/uL (150-400); Red Cell Distribution Width 14.2 % (11.6-14.8); White Blood Cell Count 7.3 X10^3/uL (4.5-11.0)
[2024-07-31 11:41] LABS: Squamous Epithelial Cell Urine 5-10 /HPF (0-5/HPF); Urine Volume 10mL (spun)
[2024-07-31 11:42] LABS: Bacteria Urine Moderate (10-30); Culture Indicated Urine Cult Not Indicated; RBC Urine None Seen (0-5/HPF); WBC Urine 1-5/HPF (0-5/HPF)
[2024-07-31] MEDS: MORPHINE 4 MG/ML INJ IV (11:43)
[2024-07-31 11:45] VITALS: PULSE 70; O2SAT 97
[2024-07-31 11:51] LABS: Alanine Aminotransferase 17 IU/L (<35); Albumin 3.8 g/dL (3.5-5.0); Albumin Globulin Ratio 1.3 (1.0-2.8); Alkaline Phosphatase 79 U/L (38-126); Aspartate Aminotransferase 24 IU/L (14-36); Bilirubin Total 0.4 mg/dL (0.2-1.3); Blood Urea Nitrogen 22 mg/dL (7-17); Calcium 8.9 mg/dL (8.4-10.2); Carbon Dioxide 24 mmol/L (22-32); Chloride 107 mmol/L (98-107); Estimated Glomerular Filt Rate > 60 mL/min (>60); Globulin 2.9 g/dL (1.7-4.1); Glucose 85 mg/dL (70-100); HEMOLYSIS < 15 (0-50); Lipase 132 U/L (23-300); Magnesium 1.9 mg/dL (1.6-2.3); Potassium 4.2 mmol/L (3.4-5.1); Sodium 137 mmol/L (137-145); Total Protein 6.7 g/dL (6.3-8.2)
[2024-07-31 12:00] VITALS: PULSE 70; O2SAT 94
[2024-07-31 12:30] VITALS: PULSE 68; O2SAT 94
[2024-07-31 12:49] VITALS: BP 119/65
== END 2024-07-31 12:49 | disposition home or self-care (01) ==
PROVIDERS: Emergency Provider Student in an Organized Health Care Education/Training Program
DX: R10.9 Unspecified abdominal pain (principal); M25.511 Pain in right shoulder
CPT/HCPCS: 36415; 73030; 74176; 80053; 81003; 81015; 81025; 83690; 83735; 85025; 96374; 99284; J2270

== ENCOUNTER 2024-09-26 18:20 | Emergency (ER) | payer OTHER, SELFPAY ==
[2024-09-26 18:24] VITALS: BP 136/87; PULSE 70; RESP 16; TEMP 36.8; O2SAT 100; BMI 45.7
--- NOTE | 2024-09-26 19:08 | DI.CT.S_ITS ---
PROCEDURE: CT CERVICAL SPINE WO CON INDICATIONS: right sided cervical radiculopathy TECHNIQUE: Noncontrast 3 mm thick sections acquired from the skull base to the T4 level. Sagittal and coronal reformats were then constructed. For radiation dose reduction, the following was used: automated exposure control, adjustment of mA and/or kV according to patient size. COMPARISON: None. FINDINGS: Image quality: Diagnostic Bones: No acute fractures or dislocations. No acute compression fractures of the vertebral bodies. Craniocervical junction is intact. C1-C2 relationship is preserved. Visualized superior ribs are intact. Mild multilevel cervical spondylosis most pronounced at C4-5 and C5-6. Straightening of cervical lordosis which may be due to patient positioning and/or concurrent muscle spasms. No high-grade spinal canal or neuroforaminal stenosis identified on this noncontrast cervical spine CT. Soft tissues: Prevertebral soft tissues are normal in thickness. No paravertebral hematomas. No apical pneumothoraces. IMPRESSION: CT cervical spine without acute fracture or traumatic malalignment. Mild multilevel cervical spondylosis. No high-grade central canal or neuroforaminal stenosis identified. However, if there is persistent clinical concern, recommend further evaluation with outpatient cervical spine MRI. Straightening of cervical lordosis likely related to patient positioning and/or concurrent muscle spasms. Dictated by: Ty Duron M.D. on 09/26/2024 at 20:04 Approved by: Ty Duron M.D. on 09/26/2024 at 20:08
[2024-09-26 19:56] LABS: Add Manual Diff / Slide Review NO; Basophils Absolute Auto 100 /uL (0-100); Basophils Percent Auto 1.2 % (0-2); Eosinophils Absolute Auto 400 /uL (0-450); Hematocrit 40.1 % (36-46); Hemoglobin 13.5 g/dL (12.0-16.0); Lymphocytes Absolute Auto 2900 /uL (1100-4500); Lymphocytes Percent Auto 39.7 % (25-40); Mean Corpuscular HGB Conc 33.6 % (30-36); Mean Corpuscular Hemoglobin 32.1 PG (26-34); Mean Corpuscular Volume 95.5 fL (80-100); Monocytes Absolute Auto 400 /uL (0-900); Neutrophils Absolute Auto 3500 /uL (1500-7000); Neutrophils Percent Auto 48.1 % (50-75); Platelet Count 278 X10^3/uL (150-400); Red Cell Distribution Width 13.9 % (11.6-14.8); White Blood Cell Count 7.3 X10^3/uL (4.5-11.0)
[2024-09-26 20:08] LABS: Alanine Aminotransferase 17 IU/L (<35); Albumin 4.1 g/dL (3.5-5.0); Albumin Globulin Ratio 1.3 (1.0-2.8); Alkaline Phosphatase 74 U/L (38-126); Aspartate Aminotransferase 27 IU/L (14-36); BUN Creatinine Ratio 16.3 (6-22); Bilirubin Total 0.3 mg/dL (0.2-1.3); Blood Urea Nitrogen 14 mg/dL (7-17); Calcium 9.4 mg/dL (8.4-10.2); Carbon Dioxide 25 mmol/L (22-32); Chloride 109 mmol/L (98-107); Estimated Glomerular Filt Rate > 60 mL/min (>60); Globulin 3.1 g/dL (1.7-4.1); Glucose 93 mg/dL (70-99); HEMOLYSIS 22 (0-50); Potassium 4.1 mmol/L (3.4-5.1); Sodium 140 mmol/L (137-145); Total Protein 7.2 g/dL (6.3-8.2)
[2024-09-26 20:31] LABS: Erythrocyte Sedimentation Rate 7 MM/HR (0-20)
[2024-09-26 22:07] VITALS: BP 137/96; PULSE 72; O2SAT 97
[2024-09-26 22:30] VITALS: BP 132/90; PULSE 67; O2SAT 97
[2024-09-26 23:00] VITALS: BP 138/98; PULSE 64; O2SAT 97
[2024-09-26] MEDS: DEXAMETHASONE 10 MG/ML VIAL IV (23:11)
[2024-09-26 23:30] VITALS: BP 136/94; PULSE 66; O2SAT 96
[2024-09-27] VITALS: BP 136/90; PULSE 66; O2SAT 97
[2024-09-27 00:30] VITALS: BP 136/96; PULSE 69; O2SAT 96
--- NOTE | 2024-09-27 01:00 | ED.GENADULT ---
HPI - General Adult General Chief complaint: Extremity Injury, Upper Stated complaint: injury right shoulder Time Seen by Provider: 09/26/24 18:36 Source: patient Mode of arrival: Ambulatory History of Present Illness HPI narrative: 48-year-old woman visiting the area after early usp, lives in [place] where the majority of her [facility] is at the [facility]. She presents complaining of worsening right shoulder pain. Workup to date has included x-rays, physical therapy to injections into the joint itself her physician has told her the next step needs to be an MRI however the [facility] has not been putting through the referral needed so that she can facilitate that additional workup. In the meantime pain has gotten worse and on physical exam I am suspicious that she also has some radicular neck pain contributing to her overall pain. She does have a MRI compatible spinal stimulator in place and we will need a MRI that can facilitate that to have her MRIs completed. She has no other complaints today Related Data Previous Rx's ?Medication ?Instructions ?Recorded cefdinir 300 mg capsule 300 mg PO BID #10 caps 06/14/24 dexamethasone 4 mg tablet 10 mg (2.5 x 4 mg) PO DAILY #5 tabs 09/27/24 hydrocodone 5 mg-acetaminophen 325 1 tab PO BEDTIME PRN pain #30 tabs 09/27/24 mg tablet lidocaine 5 % topical patch 1 patch topical DAILY #30 ea 09/27/24 naproxen 500 mg tablet (Naprosyn) 500 mg PO BID #60 tabs 09/27/24 Allergies Allergy/AdvReac Type Severity Reaction Status Date / Time codeine Allergy Verified 06/14/24 09:45 iodine Allergy Verified 06/14/24 09:45 Review of Systems Review of Systems Narrative: Pertinent positive and negative findings as per HPI Patient History Smoking Status: Never smoker Exam Initial Vital Signs Initial Vital Signs: Vital Signs Temperature 98.2 F 09/26/24 18:24 Pulse Rate 70 09/26/24 18:24 Respiratory Rate 16 09/26/24 18:24 Blood Pressure 136/87 09/26/24 18:24 Pulse Oximetry 100 09/26/24 18:24 Oxygen Delivery Method Room Air 09/26/24 18:24 General: Alert appropriate in no acute distress Neck: Minor tenderness along the right side of her neck and radicular symptoms down to the dorsum of her hand are elicited with manipulation and compression of her neck. Respiratory: Able to speak in full sentences, no obvious respiratory distress Skin: No obvious rashes, warm and dry Neurologic: Grossly intact no obvious asymmetries or abnormalities Psych: appropriate insight and affect, cooperative Extremity: She has point tenderness in the anterior portion of the right rotator cuff, no swelling, no tenderness with bicipital or triceps testing. She is neurovascularly intact distally Course Orders Ordered: ED Orders 09/26/24 19:08 CT cervical spine wo con Stat 09/26/24 19:44 CBC Auto Diff [Complete Blood Count AUTO DIFF] Stat CMP [Comprehensive Metabolic Panel] Stat Erythrocyte Sedimentation Rate Stat Discontinued Medications Dexamethasone (Dexamethasone 10 Mg/Ml Vial) 10 mg IV NOW ONE Stop: 09/26/24 22:35 Last Admin: 09/26/24 23:11 Dose: 10 mg Documented By: SAMI Vital Signs Vital signs: Vital Signs - 8 hr 09/26/24 18:24 09/26/24 22:07 09/26/24 22:07 Temperature 98.2 F Pulse Rate 70 72 Respiratory Rate 16 Blood Pressure 136/87 137/96 H Pulse Oximetry 100 97 Oxygen Delivery Method Room Air 09/26/24 22:30 09/26/24 22:30 09/26/24 23:00 Temperature Pulse Rate 67 64 Respiratory Rate Blood Pressure 132/90 Pulse Oximetry 97 97 Oxygen Delivery Method 09/26/24 23:00 Temperature Pulse Rate Respiratory Rate Blood Pressure 138/98 H Pulse Oximetry Oxygen Delivery Method Medical Decision Making Lab Data 09/26/24 19:44 09/26/24 19:44 Labs: Lab Results 09/26/24 Range/Units 19:44 WBC 7.3 (4.5-11.0) X10^3/uL RBC 4.20 (4.0-5.2) X10^6/uL Hgb 13.5 (12.0-16.0) g/dL Hct 40.1 (36-46) % MCV 95.5 (80-100) fL MCH 32.1 (26-34) PG MCHC 33.6 (30-36) % RDW 13.9 (11.6-14.8) % Plt Count 278 (150-400) X10^3/uL Neut % (Auto) 48.1 L (50-75) % Lymph % (Auto) 39.7 (25-40) % [place] % (Auto) 6.0 (3-14) % Eos % (Auto) 5.0 H (2-4) % Baso % (Auto) 1.2 (0-2) % Neut # (Auto) 3500 (9198-1339) /uL Lymph # (Auto) 2900 (7012-1137) /uL [place] # (Auto) 400 (0-900) /uL Eos # (Auto) 400 (0-450) /uL Baso # (Auto) 100 (0-100) /uL ESR 7 (0-20) MM/HR Sodium 140 (137-145) mmol/L Potassium 4.1 (3.4-5.1) mmol/L Chloride 109 H (98-107) mmol/L Carbon Dioxide 25 (22-32) mmol/L BUN 14 (7-17) mg/dL Creatinine 0.86 (0.52-1.04) mg/dL Estimated GFR > 60 (>60) mL/min BUN/Creatinine Ratio 16.3 (6-22) Glucose 93 (70-99) mg/dL Calcium 9.4 (8.4-10.2) mg/dL Total Bilirubin 0.3 (0.2-1.3) mg/dL AST 27 (14-36) IU/L ALT 17 (<35) IU/L Alkaline Phosphatase 74 (38-126) U/L Total Protein 7.2 (6.3-8.2) g/dL Albumin 4.1 (3.5-5.0) g/dL Globulin 3.1 (1.7-4.1) g/dL Albumin/Globulin Ratio 1.3 (1.0-2.8) MDM Narrative Medical decision making narrative: 48-year-old woman presents with right shoulder pain. This has been an ongoing problem. She is continuing to [facility] [place] [facility] of the [facility] as well as orthopedic consult. She has had 2 shoulder injections and physical therapy to deal with this problem. Now she is having radicular symptoms from her neck down the posterior portion of her arm into her fingers. She is unable to sleep and quite frustrated with her inability to access care because the [facility] [place] [facility] not [facility] appropriate referrals. On her exam she has some mild cervical radiculopathy symptoms, there is no obvious muscle defect or atrophy at this time. She also has some point tenderness over the anterior portion of her rotator cuff on the right side. Unfortunately I do not have immediate solutions and an MRI on an emergent basis is not appropriate. We talked about continued pain control and I will refill her Naprosyn, lidocaine patches and give her a small dose of hydrocodone, she has been taking a quarter to half a pill at night with sleep. I have also given her prescription for a total of 3 days of dexamethasone for cervical radiculopathy see if this helps with that pain. She is given a sling to see if taking some of the pressure on her shoulder and the right side of her neck helps alleviate any of her symptoms. She understands the next step really needs to be orthopedic consultation, probable MRI to see if there may be any relief with surgical intervention. She understands the limitations, she has no additional complaints or concerns at this time Discharge Plan Departure Patient Disposition: Home Clinical Impression: Cervical radiculopathy Rotator cuff disorder Qualifiers: Laterality: right Qualified Code(s): M67.911 - Unspecified disorder of synovium and tendon, right shoulder Instructions: DI for Rotator Cuff Injury, DI for Cervical Radiculopathy Activity Restrictions/Additional Instructions: Thank you for coming in today I am so sorry that you are continuing to struggle with the [facility] and getting appropriate referrals to deal with your worsening shoulder pain. After examining you today and looking at the CT scan of your cervical spine that we did today, I believe that your pain actually is from 2 places I think you have some acute pain from the nerves in your neck that are radiating down your arm. Using a sling can help with this using a brief course of the steroid medication, dexamethasone can help with inflammation. I also think that you very likely have a partial rotator cuff tear in the front part of your right shoulder. Again a sling might be helpful, I am happy to refill your chronic medications that you can not get back to [place] until late summer this will include naproxen, hydrocodone and lidocaine patches The next step in your workup is talking with an orthopedic surgeon. I think an MRI of your shoulder to figure out if surgery might be helpful at all maybe appropriate. Make sure that you are doing continue gentle exercises with your arm so that it does not get stuck in 1 place due to pain If you find that you are getting worse or develop any new symptoms, please feel free to return to the emergency department for further evaluation. Prescriptions: New naproxen [Naprosyn] 500 mg tablet 500 mg PO BID Qty: 60 2RF hydrocodone-acetaminophen 5-325 mg tablet 1 tab PO BEDTIME PRN (Reason: pain) Qty: 30 0RF dexamethasone 4 mg tablet 10 mg PO DAILY Qty: 5 0RF lidocaine 5 % adhesive patch,medicated 1 patch topical DAILY Qty: 30 2RF Rx Instructions: leave on most painful area for up to 12 hrs No Action cefdinir 300 mg capsule 300 mg PO BID Qty: 10 0RF Stand Alone Forms: Patient Portal/API
[2024-09-27] MEDS: HYDROCODONE/ACET 5/325 PREPACK 1 BOTTLE MISC (01:30)
== END 2024-09-27 01:35 | disposition home or self-care (01) ==
PROVIDERS: Emergency Provider Emergency Medicine
DX: M54.12 Radiculopathy, cervical region (principal); M67.911 Unspecified disorder of synovium and tendon, right shoulder; Z96.82 Presence of neurostimulator
CPT/HCPCS: 36415; 72125; 80053; 85025; 85651; 96374; 99284; J1100

== ENCOUNTER 2024-10-09 17:28 | Emergency (ER) | payer OTHER, SELFPAY ==
[2024-10-09] VITALS (7 sets, daily range): BP systolic 119; BP diastolic 79–89; PULSE 69–89; RESP 18; TEMP 36.6–37.1; O2SAT 89–97; BMI 45.7
--- NOTE | 2024-10-09 17:49 | ED_ITS ---
HPI - Skin/Abscess/Foreign Bdy <Bull Dinero DO - Last Filed: 10/10/24 17:09> General Chief complaint: Skin/Abscess/Foreign Body Stated complaint: Abdominal Pain Time Seen by Provider: 10/09/24 17:32 Source: patient Mode of arrival: Ambulatory Limitations: no limitations History of Present Illness HPI narrative: Patient is a 48-year-old female no significant past medical history presents in the emergency department from home for evaluation of possible abscess. She states that she has noticed some hard lumps in her lower abdomen also stating that she feels 1 in her left breast states that it is straightening. She states that she went to the amount of her no walk-in clinic in August and was told they were lipomas. States that she only had 2 of the time states that it is now draining and there are more. She denies any actual pain to the area. She denies any other symptoms at this time. Related Data Previous Rx's ?Medication ?Instructions ?Recorded cefdinir 300 mg capsule 300 mg PO BID #10 caps 06/14 dexamethasone 4 mg tablet 10 mg (2.5 x 4 mg) PO DAILY #5 tabs 09/27/24 hydrocodone 5 mg-acetaminophen 325 1 tab PO BEDTIME KS N pain #30 tabs 09/27/24 mg tablet lidocaine 5 % topical patch 1 patch topical DAILY #30 ea 09/27/24 naproxen 500 mg tablet (Naprosyn) 500 mg PO BID #60 ta bs 09/27/24 amoxicillin 875 mg tablet 875 mg PO BID dental infecti on 10 10/09/24 days #20 tabs Allergies Allergy/AdvReac Type Severity Reaction Status Date / Time codeine Allergy Verified 10/09/24 17:34 iodine Allergy Verified 10/09/24 17:34 Review of Systems <Bull Dinero DO - Last Filed: 10/10/24 17:09> Review of Systems Narrative: General: Denies fever, chills, weight loss HEENT: Denies headache, eye drainage, eye irritation, head trauma, sore throat, voice change Cardiovascular: Denies any chest pain, palpitations, tachycardia Respiratory: Denies any shortness of breath, cough, wheeze, stridor GI/: Denies any abdominal pain, nausea, vomiting, diarrhea, bright red blood per rectum, melanotic stools, urinary frequency, urinary retention, dysuria, hematuria MSK: Denies any joint pain, muscle pains, swelling Skin: Lumps on abdomen Neuro: Denies any headache, lightheadedness, dizziness, fainting, weakness Psych: Denies SI/HI Exam <Bull Dinero DO - Last Filed: 10/10/24 17:09> Narrative Exam Narrative: General: Cooperative, well-developed, not in acute distress HEENT: Normocephalic, atraumatic, PERRLA, normal sclera, eyelids normal Neck: Active full range of motion, atraumatic Chest: Normal to inspection, negative crepitus, no overlying erythema ecchymosis Respiratory: Normal respiratory effort, not in acute respiratory distress, clear to auscultation bilaterally negative cough, wheeze, tachypnea, rhonchi, rales Cardiology: Regular rate rhythm negative gallop, murmur, rubs GI/: No tenderness to palpation, soft, non rigid, normal to inspection, exam deferred MSK: Full active range of motion in all 4 extremities, atraumatic, no tenderness to palpation of any bony prominences Skin: No rashes or lesions noted Neuro: Alert awake oriented x3, moves all 4 extremities spontaneously, cranial nerves intact, able to answer all questions appropriately follows commands appropriately Psych: Cooperative, negative suicidal or homicidal ideations Initial Vital Signs Initial Vital Signs: Vital Signs Temperature 97.8 F 10/09/24 17:34 Pulse Rate 74 10/09/24 17:34 Respiratory Rate 18 10/09/24 17:34 Blood Pressure 119/79 10/09/24 17:34 Pulse Oximetry 96 10/09/24 17:34 Oxygen Delivery Method Room Air 10/09/24 17:34 <Emiliano Jessica MD - Last Filed: 10/10/24 02:16> Initial Vital Signs Initial Vital Signs: Vital Signs Temperature 97.8 F 10/09/24 17:34 Pulse Rate 74 10/09/24 17:34 Respiratory Rate 18 10/09/24 17:34 Blood Pressure 119/79 10/09/24 17:34 Pulse Oximetry 96 10/09/24 17:34 Oxygen Delivery Method Room Air 10/09/24 17:34 Course <Bull Dinero DO - Last Filed: 10/10/24 17:09> Orders Ordered: Discontinued Medications Amoxicillin (Amoxicillin 250 Mg Capsule) 1,000 mg PO NOW ONE Stop: 10/09/24 19:44 Last Admin: 10/09/24 19:56 Dose: 1,000 mg Documented By: CRESENCIO Vital Signs Vital signs: Vital Signs - 8 hr 10/09/24 18:30 10/09/24 19:00 10/09/24 19:30 Temperature Pulse Rate 71 69 69 Blood Pressure Pulse Oximetry 96 96 97 10/09/24 19:48 10/09/24 19:49 10/09/24 19:49 Temperature 98.7 F Pulse Rate 69 70 Blood Pressure 119/89 Pulse Oximetry 97 96 <Emiliano Jessica MD - Last Filed: 10/10/24 02:16> Orders Ordered: Discontinued Medications Amoxicillin (Amoxicillin 250 Mg Capsule) 1,000 mg PO NOW ONE Stop: 10/09/24 19:44 Last Admin: 10/09/24 19:56 Dose: 1,000 mg Documented By: CRESENCIO Vital Signs Vital signs: Vital Signs - 8 hr 10/09/24 18:30 10/09/24 19:00 10/09/24 19:30 Temperature Pulse Rate 71 69 69 Blood Pressure Pulse Oximetry 96 96 97 10/09/24 19:48 10/09/24 19:49 10/09/24 19:49 Temperature 98.7 F Pulse Rate 69 70 Blood Pressure 119/89 Pulse Oximetry 97 96 MDM - Skin/Abscess/Foreign Bdy <Bull Dinero DO - Last Filed: 10/10/24 17:09> Lab Data 10/09/24 18:03 10/09/24 18:03 Labs: Lab Results 10/09/24 Range/Units 18:03 WBC 7.8 (4.5-11.0) X10^3/uL RBC 4.23 (4.0-5.2) X10^6/uL Hgb 13.4 (12.0-16.0) g/dL Hct 40.1 (36-46) % MCV 94.9 (80-100) fL MCH 31.7 (26-34) PG MCHC 33.5 (30-36) % RDW 13.6 (11.6-14.8) % Plt Count 273 (150-400) X10^3/uL Neut % (Auto) 50.8 (50-75) % Lymph % (Auto) 35.3 (25-40) % [place] % (Auto) 7.6 (3-14) % Eos % (Auto) 5.2 H (2-4) % Baso % (Auto) 1.1 (0-2) % Neut # (Auto) 3900 (9217-3480) /uL Lymph # (Auto) 2700 (1581-8492) /uL [place] # (Auto) 600 (0-900) /uL Eos # (Auto) 400 (0-450) /uL Baso # (Auto) 100 (0-100) /uL Sodium 138 (137-145) mmol/L Potassium 3.6 (3.4-5.1) mmol/L Chloride 105 (98-107) mmol/L Carbon Dioxide 26 (22-32) mmol/L BUN 18 H (7-17) mg/dL Creatinine 0.95 (0.52-1.04) mg/dL Estimated GFR > 60 (>60) mL/min BUN/Creatinine Ratio 18.9 (6-22) Glucose 95 (70-99) mg/dL Calcium 9.0 (8.4-10.2) mg/dL Total Bilirubin 0.2 (0.2-1.3) mg/dL AST 22 (14-36) IU/L ALT 15 (<35) IU/L Alkaline Phosphatase 71 (38-126) U/L Total Protein 6.7 (6.3-8.2) g/dL Albumin 3.8 (3.5-5.0) g/dL Globulin 2.9 (1.7-4.1) g/dL Albumin/Globulin Ratio 1.3 (1.0-2.8) [facility] Narrative Medical decision making narrative: 1800: Patient signed out to DR. jessica, patient is pending full workup for concersns of firm nodules/abscesses to her abdomen, no physically findings of such on patient. 10/09/24, 1830, Orion. Sign-out from Dr. Dinero. 48-year-old female has had breast cyst drainage wound left breast near surgical site in the past, site looks clean, patient has cessation of lumps in her anterior abdominal cavity, nothing draining, concerned there might be cysts or abscesses there. No injections. No history of diabetes. CT abdomen and pelvis ordered, results pending. Assumed care. CT abdomen and pelvis shows no acute changes, no ventral lesions noted. See radiology report. Results of the CT printed copy shared with the patient, who seemed reassured. Also requests recheck of right ear, having right ear pain, has had reconstructive surgery there. TM appears abnormal in appearance, unclear if this represents reconstruction changes, loss of landmarks, however since patient is symptomatic we will treat for otitis media. Oral dose of amoxicillin, amoxicillin sent to her pharmacy. Recheck with your PCP advised. <Emiliano Jessica MD - Last Filed: 10/10/24 02:16> Lab Data Labs: Lab Results 10/09/24 Range/Units 18:03 WBC 7.8 (4.5-11.0) X10^3/uL RBC 4.23 (4.0-5.2) X10^6/uL Hgb 13.4 (12.0-16.0) g/dL Hct 40.1 (36-46) % MCV 94.9 (80-100) fL MCH 31.7 (26-34) PG MCHC 33.5 (30-36) % RDW 13.6 (11.6-14.8) % Plt Count 273 (150-400) X10^3/uL Neut % (Auto) 50.8 (50-75) % Lymph % (Auto) 35.3 (25-40) % [place] % (Auto) 7.6 (3-14) % Eos % (Auto) 5.2 H (2-4) % Baso % (Auto) 1.1 (0-2) % Neut # (Auto) 3900 (3194-4898) /uL Lymph # (Auto) 2700 (6305-3415) /uL [place] # (Auto) 600 (0-900) /uL Eos # (Auto) 400 (0-450) /uL Baso # (Auto) 100 (0-100) /uL Sodium 138 (137-145) mmol/L Potassium 3.6 (3.4-5.1) mmol/L Chloride 105 (98-107) mmol/L Carbon Dioxide 26 (22-32) mmol/L BUN 18 H (7-17) mg/dL Creatinine 0.95 (0.52-1.04) mg/dL Estimated GFR > 60 (>60) mL/min BUN/Creatinine Ratio 18.9 (6-22) Glucose 95 (70-99) mg/dL Calcium 9.0 (8.4-10.2) mg/dL Total Bilirubin 0.2 (0.2-1.3) mg/dL AST 22 (14-36) IU/L ALT 15 (<35) IU/L Alkaline Phosphatase 71 (38-126) U/L Total Protein 6.7 (6.3-8.2) g/dL Albumin 3.8 (3.5-5.0) g/dL Globulin 2.9 (1.7-4.1) g/dL Albumin/Globulin Ratio 1.3 (1.0-2.8) Imaging Data CT scan - abdomen/pelvis: Radiologist's Impression: [address] [address] [address] Scan Report Signed Patient: Sherita Shaw MR#: [id number] : 1975 Acct:[id number] Age/Sex: 48 / F Date of Service: 10/09/24 Loc: ED Accession Number: [id number] Procedure: CT abdomen pelvis wo con Ordering Provider: Bull Dinero D.O. PROCEDURE: CT ABDOMEN PELVIS WO CON INDICATIONS: Pt with concerns for abscess/lipomas to anterior abd wall TECHNIQUE: CT of the abdomen and pelvis was obtained without intravenous contrast. Coronal and sagittal reformats were performed. For radiation dose reduction, the following was used: automated exposure control, adjustment of mA and/or kV according to patient size. COMPARISON: [facility], CT, CT ABDOMEN PELVIS WO CON, 07/31/2024, 11:35. FINDINGS: Image quality: Diagnostic. Lower Chest: No significant findings. ABDOMEN: Liver: No contour-deforming mass. Gallbladder: There is no significant biliary dilatation post cholecystectomy Biliary ducts: No biliary dilation. Pancreas: No ductal dilation. Spleen: Size is within normal limits. Adrenal Glands: No adrenal nodules. Kidneys and Ureters: Stable bilateral nonobstructing calculi measuring up to 5 mm on the left. No ureteral calculi or hydronephrosis. Stomach and Bowel: Normal colonic caliber, without significant wall thickening. The appendix is normal Peritoneum: No abnormal intraperitoneal fluid. No free air. Ventral Wall: No significant hernia. Abdominal Nodes: No retroperitoneal or mesenteric adenopathy by size criteria. Vessels: Aorta and inferior vena cava are normal in size. PELVIS: Pelvic Organs: Unremarkable. Bladder: Unremarkable. Pelvic Nodes: No enlarged lymph nodes. Miscellaneous: No inguinal hernias are seen. Bones: No aggressive osseous abnormality. IMPRESSION: No acute intra-abdominal abnormality seen. No definite abscess seen. Dictated by: Homar Cox M.D. on 10/09/2024 at 18:12 Approved by: Homar Cox M.D. on 10/09/2024 at 18:17 [facility] Narrative Medical decision making narrative: 10/09/24, Orion Duggan. Sign-out from Dr. Dinero. 48-year-old female has had breast cyst drainage wound left breast near surgical site in the past, site looks clean, patient has cessation of lumps in her anterior abdominal cavity, nothing draining, concerned there might be cysts or abscesses there. No injections. No history of diabetes. CT abdomen and pelvis ordered, results pending. Assumed care. CT abdomen and pelvis shows no acute changes, no ventral lesions noted. See radiology report. Results of the CT printed copy shared with the patient, who seemed reassured. Also requests recheck of right ear, having right ear pain, has had reconstructive surgery there. TM appears abnormal in appearance, unclear if this represents reconstruction changes, loss of landmarks, however since patient is symptomatic we will treat for otitis media. Oral dose of amoxicillin, amoxicillin sent to her pharmacy. Recheck with your PCP advised. Discharge Plan Departure Patient Disposition: Home Clinical Impression: Abdominal pain, Right otitis media Activity Restrictions/Additional Instructions: Prior history of left lateral breast procedure, some drainage in the past at the site, does not appear infected or actively draining at this time. Also sensation that there might be lumps or cysts or masses in the abdomen. CT abdomen and pelvis was obtained, no abnormalities noted. Copy of the report provided. You also had pain out drainage to the right ear, you have had reconstructive surgery on that side, not usually symptomatic. Abnormal appearing eardrum however this might be post reconstruction appearance, since you are asymptomatic we will treat for otitis media middle ear infection. First dose amoxicillin given now, prescription sent to your pharmacy. Take antibiotics as directed. Take Tylenol as needed for pain control. Recheck your symptoms with your regular doctor if not improving in the next few days. Return earlier to this/nearest emergency department for any change worsening symptoms or any concerns prior. Prescriptions: New amoxicillin 875 mg tablet 875 mg PO BID 10 Days Qty: 20 0RF No Action cefdinir 300 mg capsule 300 mg PO BID Qty: 10 0RF naproxen [Naprosyn] 500 mg tablet 500 mg PO BID Qty: 60 2RF hydrocodone-acetaminophen 5-325 mg tablet 1 tab PO BEDTIME PRN (Reason: pain) Qty: 30 0RF dexamethasone 4 mg tablet 10 mg PO DAILY Qty: 5 0RF lidocaine 5 % adhesive patch,medicated 1 patch topical DAILY Qty: 30 2RF Rx Instructions: leave on most painful area for up to 12 hrs Stand Alone Forms: Patient Portal/API
--- NOTE | 2024-10-09 17:57 | DI.CT.S_ITS ---
PROCEDURE: CT ABDOMEN PELVIS WO CON INDICATIONS: Pt with concerns for abscess/lipomas to anterior abd wall TECHNIQUE: CT of the abdomen and pelvis was obtained without intravenous contrast. Coronal and sagittal reformats were performed. For radiation dose reduction, the following was used: automated exposure control, adjustment of mA and/or kV according to patient size. COMPARISON: [facility], CT, CT ABDOMEN PELVIS WO CON, 07/31/2024, 11:35. FINDINGS: Image quality: Diagnostic. Lower Chest: No significant findings. ABDOMEN: Liver: No contour-deforming mass. Gallbladder: There is no significant biliary dilatation post cholecystectomy Biliary ducts: No biliary dilation. Pancreas: No ductal dilation. Spleen: Size is within normal limits. Adrenal Glands: No adrenal nodules. Kidneys and Ureters: Stable bilateral nonobstructing calculi measuring up to 5 mm on the left. No ureteral calculi or hydronephrosis. Stomach and Bowel: Normal colonic caliber, without significant wall thickening. The appendix is normal Peritoneum: No abnormal intraperitoneal fluid. No free air. Ventral Wall: No significant hernia. Abdominal Nodes: No retroperitoneal or mesenteric adenopathy by size criteria. Vessels: Aorta and inferior vena cava are normal in size. PELVIS: Pelvic Organs: Unremarkable. Bladder: Unremarkable. Pelvic Nodes: No enlarged lymph nodes. Miscellaneous: No inguinal hernias are seen. Bones: No aggressive osseous abnormality. IMPRESSION: No acute intra-abdominal abnormality seen. No definite abscess seen. Dictated by: Homar Cox M.D. on 10/09/2024 at 18:12 Approved by: Homar Cox M.D. on 10/09/2024 at 18:17
[2024-10-09 18:10] LABS: Add Manual Diff / Slide Review NO; Basophils Absolute Auto 100 /uL (0-100); Basophils Percent Auto 1.1 % (0-2); Eosinophils Absolute Auto 400 /uL (0-450); Eosinophils Percent Auto 5.2 % (2-4); Hematocrit 40.1 % (36-46); Hemoglobin 13.4 g/dL (12.0-16.0); Lymphocytes Absolute Auto 2700 /uL (1100-4500); Lymphocytes Percent Auto 35.3 % (25-40); Mean Corpuscular HGB Conc 33.5 % (30-36); Mean Corpuscular Hemoglobin 31.7 PG (26-34); Mean Corpuscular Volume 94.9 fL (80-100); Monocytes Absolute Auto 600 /uL (0-900); Monocytes Percent Auto 7.6 % (3-14); Neutrophils Absolute Auto 3900 /uL (1500-7000); Neutrophils Percent Auto 50.8 % (50-75); Platelet Count 273 X10^3/uL (150-400); Red Blood Cell Count 4.23 X10^6/uL (4.0-5.2); Red Cell Distribution Width 13.6 % (11.6-14.8); White Blood Cell Count 7.8 X10^3/uL (4.5-11.0)
[2024-10-09 18:21] LABS: Alanine Aminotransferase 15 IU/L (<35); Albumin 3.8 g/dL (3.5-5.0); Albumin Globulin Ratio 1.3 (1.0-2.8); Alkaline Phosphatase 71 U/L (38-126); Aspartate Aminotransferase 22 IU/L (14-36); BUN Creatinine Ratio 18.9 (6-22); Bilirubin Total 0.2 mg/dL (0.2-1.3); Blood Urea Nitrogen 18 mg/dL (7-17); Carbon Dioxide 26 mmol/L (22-32); Chloride 105 mmol/L (98-107); Estimated Glomerular Filt Rate > 60 mL/min (>60); Globulin 2.9 g/dL (1.7-4.1); Glucose 95 mg/dL (70-99); HEMOLYSIS 19 (0-50); Potassium 3.6 mmol/L (3.4-5.1); Sodium 138 mmol/L (137-145); Total Protein 6.7 g/dL (6.3-8.2)
[2024-10-09] MEDS: AMOXICILLIN 250 MG CAPSULE 1000 MG PO (19:56)
== END 2024-10-09 20:03 | disposition home or self-care (01) ==
PROVIDERS: Student in an Organized Health Care Education/Training Program; Emergency Provider Emergency Medicine
DX: R10.30 Lower abdominal pain, unspecified (principal); H66.91 Otitis media, unspecified, right ear
CPT/HCPCS: 36415; 74176; 80053; 85025; 99283; 99284